=== PATIENT | male | born 1960 | race Caucasian/White ===

== ENCOUNTER → 2021-03-11 | Emergency (ER) | payer MEDICARE, MEDICAID ==
[~2021-03-11] VITALS: Ht 175.3 cm; Wt 72.0 kg
[~2021-03-11] MED LIST: IBUPROFEN 800 MG TABLET PO ONE
[2021-03-11 04:00] VITALS: BP 119/74
== END | disposition home or self-care (01) ==
LOC: EMS 02:33
DX: S20.212A Contusion of left front wall of thorax, initial encounter (principal); G89.29 Other chronic pain; M25.561 Pain in right knee; M25.562 Pain in left knee; W19.XXXA Unspecified fall, initial encounter; Y93.89 Activity, other specified; Y92.89 Other specified places as the place of occurrence of the external cause; Y99.8 Other external cause status
CPT/HCPCS: 71046; 99283